=== PATIENT | female | born 2005 | race Caucasian/White ===

== ENCOUNTER 2023-02-01 21:12 | Emergency (ER) | payer BC ==
[~2023-02-01] VITALS: Ht 182.9 cm; Wt 63.5 kg
[2023-02-01] MEDS ORDERED: ONDANSETRON ODT 4 MG TAB.RAPDIS ONE (22:14)
[2023-02-01] MEDS ORDERED: HYDROCODONE/APAP 10-325 MG TABLET ONE (22:14)
[2023-02-01] MEDS ORDERED: ONDANSETRON ODT 4 MG TAB.RAPDIS SL ONE (22:15)
[2023-02-01] MEDS ORDERED: HYDROCODONE/APAP 10-325 MG TABLET PO ONE (22:15)
[2023-02-01] MEDS ORDERED: NEOMY/BACITRA/POLYMYXIN B OINT UD PACKET TP ONE ×2 (23:10→23:15)
[2023-02-01] MEDS ORDERED: ONDA4TAB5 PO (23:10)
[2023-02-01] MEDS ORDERED: HYDR-3980 PO (23:10)
[2023-02-01 23:28] VITALS: BP 112/76; O2SAT 97
== END 2023-02-01 23:28 | disposition home or self-care (01) ==
LOC: ER 21:52
DX: S50.02XA Contusion of left elbow, initial encounter (principal); Z79.899 Other long term (current) drug therapy; W18.39XA Other fall on same level, initial encounter; Y93.89 Activity, other specified; Y92.89 Other specified places as the place of occurrence of the external cause; Y99.8 Other external cause status
CPT/HCPCS: 73060; 73080; 73090; A4663; Q0162